=== PATIENT | female | born 1995 | race Caucasian/White ===

== ENCOUNTER 2017-01-14 08:52 | Emergency (ER) | payer OTHER ==
[2017-01-14 09:05] VITALS: BP 109/55
[2017-01-14] MEDS ORDERED: PRED50TA PO (09:42)
--- NOTE | 2017-01-14 09:43 | PHYS DOC ---
Past History Past Medical History: No Pertinent History Past Surgical History: No Surgical History Alcohol Use: None Drug Use: None Adult General Chief Complaint Chief Complaint: SKIN RASH/ABSCESS HPI HPI 2-year-old female complaining of scaly rash left cheek. Patient states she and her started drinking a new drink 2 days ago. Patient does not feel she was exposed to poison marcia. Rash was mildly indurated and scaly last night. She put some hydrocortisone cream on it and then this morning it was more indurated and scaly just on the cheek. No eye involvement. No headache or stiff neck. No fevers chills sweats or shaking chills. Supple neck. Patient otherwise feels well. No difficulty with speech breathing or swallowing. Patient denies possibility of Review of Systems Review of Systems Constitutional: Denies fever or chills [] Eyes: Denies change in visual acuity, redness, or eye pain [] HENT: Denies nasal congestion or sore throat [] Respiratory: Denies cough or shortness of breath [] Cardiovascular: No additional information not addressed in HPI [] GI: Denies abdominal pain, nausea, vomiting, bloody stools or diarrhea [] : Denies dysuria or hematuria [] Musculoskeletal: Denies back pain or joint pain [] Integument: Denies rash or skin lesions [] Neurologic: Denies headache, focal weakness or sensory changes [] Endocrine: Denies polyuria or polydipsia [] Allergies Allergies Allergies Coded Allergies Type Severity Reaction Last Updated Verified No Known Drug Allergies 01/14/17 No Physical Exam Physical Exam Well-appearing patient in no acute distress mild scaly and indurated rash left cheek. No eye involvement. Normal oropharynx with no stridor clear lungs. Rate and rhythm no tachycardia no wheezing Constitutional: Well developed, well nourished, no acute distress, non-toxic appearance. [] HENT: Normocephalic, atraumatic, bilateral external ears normal, oropharynx moist, no oral exudates, nose normal. [] Eyes: PERRLA, EOMI, conjunctiva normal, no discharge. [] Neck: Normal range of motion, no tenderness, supple, no stridor. [] Cardiovascular:Heart rate regular rhythm, no murmur [] Lungs & Thorax: Bilateral breath sounds clear to auscultation [] Abdomen: Bowel sounds normal, soft, no tenderness, no masses, no pulsatile masses. [] Skin: Warm, dry, no erythema, no rash. [] Back: No tenderness, no CVA tenderness. [] Extremities: No tenderness, no cyanosis, no clubbing, ROM intact, no edema. [] Neurologic: Alert and oriented X 3, normal motor function, normal sensory function, no focal deficits noted. [] Psychologic: Affect normal, judgement normal, mood normal. [] Current Patient Data Vital Signs Vital Signs Date Time Temp Pulse Resp B/P (MAP) Pulse Ox O2 Delivery O2 Flow Rate FiO2 01/14/17 09:05 98.5 80 16 99 EKG EKG [] Radiology/Procedures Radiology/Procedures [] Course & Med Decision Making Course & Med Decision Making Pertinent Labs and Imaging studies reviewed. (See chart for details) Signs and symptoms consistent with nonspecific rash with dermatitis left cheek. Patient with no signs of systemic illness she is well-appearing. No intraoral involvement uvular swelling stridor or exchanges or wheezing. Remainder of exam is completely benign so no further workup or treatment indicated at this time. He is aware to finish prednisone prescription as dispensed used topical hydrocortisone if desired and Benadryl as needed for itching.Patient has no signs of airway involvement whatsoever him of that she is aware to return immediately for any difficulties with breathing or signs of airway involvement. Otherwise she will follow-up with her primary care doctor in 2 days for reevaluation and referral to dermatology as needed [] Dragon Disclaimer Dragon Disclaimer This chart was dictated in whole or in part using Voice Recognition software in a busy, high-work load, and often noisy Emergency Department environment. It may contain unintended and wholly unrecognized errors or omissions. Departure Departure: Impression: Primary Impression: Rash of face Additional Impression: Dermatitis Condition: GOOD Referrals: PCP,NO (PCP) Patient Instructions: Rash Additional Instructions: Your rash is a nonspecific dermatitis. It is unclear if this was caused by contact with something, potentially a new product you and your man started drinking 2 days ago. Finish prednisone as prescribed once a day for 6 days. Take Benadryl every 4 hours 25-50 mg as needed for itching. Follow-up with your doctor in 2 days for reevaluation and referral to dermatology as needed if your symptoms are progressing. Return immediately for new severe or worsening symptoms. Scripts Prednisone (PREDNISONE) 50 Mg Tablet 1 TAB PO DAILY, #6 TAB Prov: JUVENTINO HARE MD 01/14/17 Problem Qualifiers JUVENTINO HARE MD Jan 14, 2017 09:43
== END 2017-01-14 09:55 | disposition home or self-care (01) ==
LOC: ER 08:52
DX: L30.9 Dermatitis, unspecified (principal)
CPT/HCPCS: 99283